=== PATIENT | female | born 1950 | race Caucasian/White ===

== ENCOUNTER 2019-01-05 12:23 | Emergency (ER) | payer OTHER ==
[~2019-01-05] VITALS: Ht 162.6 cm; Wt 56.7 kg
[~2019-01-05 12:23] MED LIST: IBUPROFEN 400400 M1 PO; PRINIVIL20 MG PO; ROBAXIN 750 MG750 M1 PO; TAPAZOLE5 MG PO
[2019-01-05] MEDS ORDERED: AMOXICILLIN 50500 MG PO (13:31)
[2019-01-05] MEDS ORDERED: PROMETHAZINE V120 ML PO (13:31)
[2019-01-05] MEDS ORDERED: PROAIR HFA8.5 GM INH (13:31)
[2019-01-05] MEDS ORDERED: MEDROLDOSEPACK PO (13:31)
[2019-01-05 13:47] VITALS: BP 148/60
== END 2019-01-05 13:50 | disposition home or self-care (01) ==
LOC: M.ERS 12:23
DX: J06.9 Acute upper respiratory infection, unspecified (principal); E03.9 Hypothyroidism, unspecified; I10 Essential (primary) hypertension; Z90.710 Acquired absence of both cervix and uterus; Z90.49 Acquired absence of other specified parts of digestive tract; Z88.1 Allergy status to other antibiotic agents